=== PATIENT | female | born 1960 | race Caucasian/White ===

== ENCOUNTER 2018-01-02 12:11 | Emergency (ER) | payer SELFPAY ==
[~2018-01-02 12:11] MED LIST: XYLOCAINE 2 % (PLAIN) ONE
[2018-01-02] MEDS ORDERED: DILAUDID INJ ONE (12:12)
[2018-01-02] MEDS ORDERED: NS 1000 ML 1,000 ML ONE ×2 (12:21→14:51)
[2018-01-02] MEDS ORDERED: DILAUDID INJ IVP ONE (12:41)
[2018-01-02] MEDS ORDERED: XYLOCAINE 1 % (PLAIN) ONE ×2 (12:48→15:40)
--- NOTE | 2018-01-02 12:53 | RAD ---
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 COMPARISON: None. FINDINGS: Three views of the right hand are obtained. There is comminuted open fracture of the middle and distal phalanges of the 3rd digit as well as the distal phalanx of the 4th digit with multiple p unctate metallic foreign bodies within the palm are soft tissues of the 4th digit. There is expected surrounding edema. Remaining osseous structures are intact and joint spaces are congruent. IMPRESSION: Comminuted open fractures of the distal 3rd and 4th digits as described. Reported By:
[2018-01-02] MEDS ORDERED: XYLOCAINE 1 % (PLAIN) IJ ONE (13:00)
--- NOTE | 2018-01-02 13:16 | DR.EXTPAIN ---
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 PMH - PMH Past Medical History: Diabetes, Hypothyroidism Past Surgical History: Yes - Family History Family Medical History: Diabetes Mellitus - Social History Do you use any recreational Drugs:: No ROS - Review of Systems Eyes: No Symptoms Reported ENTM: No Symptoms Reported Respiratoy: No Symptoms Reported Cardiovascular: No Symptoms Reported Gastrointestinal/Abdominal: No Symptoms Reported Genitourinary: No Symptoms Reported Neurological: No Symptoms Reported Musculoskeletal: No Symptoms Reported Integumentary: No Symptoms Reported Hematologic/Lymphatic: No Symptoms Reported Endocrine: No Symptoms Reported Psychiatric: No Symptoms Reported All Other Systems: Reviewed and Negative PE - Vital Signs Vitals: Blood Pressure 143/90 - General Limitations: No Limitations General Appearance: Alert, In No Apparent Distress - Head Head Exam: Normal Inspection - Eyes Eye exam: Normal Appearance - ENT ENT Exam: Normal Exam - Neck Neck Exam: Normal Inspection, Full ROM - Chest Chest Inspection: Normal Inspection - Respiratory Respiratory Exam: Normal Lung Sounds Bilat Respiratory Exam: Bilateral Clear to Auscultation - Cardiovascular Cardiovascular Exam: Regular Rate - Abdominal Exam Abdominal Exam: Normal Inspection Abdominal Tenderness: negative: RUQ, RLQ, LUQ, LLQ, Epigastrium, Suprapubic, Diffuse, Mild, Moderate, Severe, Other - Extremities Extremities Exam: Other (digits of right hand with trauma fracture) - Upper Extremities Shoulder Exam: Normal Inspection Arm Exam: Normal Inspection Course - Reevaluation 1st: Unchanged - Consultation Called: 13:15 (will admit for further treatment) ROR - XRAY XRAY Interpreted by: Radiologist (Right Hand: Three views of the right hand are obtained. There is comminuted open fracture of the middle and distal phalanges of the 3rd digit as well as tghe distal phalanx of the 4th digit with multiple punctate metallic foreign bodies within the palm are soft tissues of the 4th digit. There is expected surrounding edema. remaining osseous structures are intact and joint spaces are congruent.) - Diagnosis Discharge Problem: open fracture of digits 3&4 right hand - Discharge Plan Condition: Stable - Follow ups/Referrals Follow ups/Referrals: Buck Santiago [Primary Care Provider] - 3 days - Instructions
[2018-01-02] MEDS ORDERED: ZOFRAN INJ 4 MG VIAL ONE (13:44)
[2018-01-02] MEDS ORDERED: REGLAN INJ 10 MG VIAL ONE (13:44)
[2018-01-02] MEDS ORDERED: NS 100 ML IV + SPIKE MINIBAG* 100 ML IV ONE (13:59)
[2018-01-02] MEDS ORDERED: ANCEF VIAL 1 GM ONE (13:59)
[2018-01-02] MEDS: ANCEF VIAL 1 GM 1 GM in NS 100 ML IV + SPIKE MINIBAG* 100 ML IV SCH ×2 (14:15→21:20)
[2018-01-02 14:18] LABS: BASOPHILS % (AUTO) 0.6 % (0.2-1.0); EOSINOPHILS % (AUTO) 0.4 % (0.9-2.9); HEMATOCRIT 32.5 % (36.0-47.0); HEMOGLOBIN 11.4 g/dL (12.0-16.0); LYMPHOCYTES # (AUTO) 1.2 X10^3/uL (1.3-2.9); LYMPHOCYTES % (AUTO) 17.3 % (21.0-51.0); MEAN CORPUSCULAR HEMOGLOBIN 31.8 pg (27.0-34.0); MEAN CORPUSCULAR HGB CONC 35.2 g/dL (33.0-35.0); MEAN CORPUSCULAR VOLUME 90.2 fL (80.0-100.0); MEAN PLATELET VOLUME 8.8 fL (7.4-11.0); MONOCYTES # (AUTO) 0.4 x10^3/uL (0.3-0.8); MONOCYTES % (AUTO) 5.9 % (0.0-13.0); NEUTROPHILS # (AUTO) 5.2 x10^3/uL (2.2-4.8); NEUTROPHILS % (AUTO) 75.8 % (42.0-75.0); PLATELET COUNT 226 X10^3/uL (150.0-450.0); RED CELL DISTRIBUTION WIDTH 13.5 % (11.6-16.5); WHITE BLOOD COUNT 6.9 X10^3/uL (3.6-10.0)
[2018-01-02 14:28] LABS: ALANINE AMINOTRANSFERASE 21 Units/L (12-78); ALBUMIN 3.5 g/dL (3.4-5.0); ALKALINE PHOSPHATASE 60 Units/L (46-116); ASPARTATE AMINO TRANSFERASE 14 Units/L (15-37); BLOOD UREA NITROGEN 19 mg/dL (7-18); CALCIUM 8.3 mg/dL (8.5-10.1); CARBON DIOXIDE 28.3 mmol/L (21-32); CHLORIDE 106 mmol/L (98-107); COR NA(FOR HYPERGLY) 143 mmol/L (136-145); CREATININE 0.64 mg/dL (0.55-1.02); SODIUM 141 mmol/L (136-145); TOTAL PROTEIN 6.4 g/dL (6.4-8.2); eGFR BLACK RACES > 60 (>60); eGFR NON BLACK RACES > 60 (>60)
[2018-01-02] MEDS ORDERED: NAROPIN 0.75% EPI ONE (15:07)
[2018-01-02] MEDS ORDERED: NS IRRIGATION 1000 ML 1,000 ML with BACITRACIN VIAL 50,000 UNT IR ONE ×4 (15:21)
[2018-01-02] MEDS ORDERED: FENTANYL INJ 100 mcg ONE (15:25)
[2018-01-02] MEDS ORDERED: BACTROBAN OINT ONE (15:35)
[2018-01-02] MEDS ORDERED: TORADOL 30 MG VIAL ONE (15:40)
[2018-01-02] MEDS ORDERED: VERSED ONE (15:40)
[2018-01-02] MEDS ORDERED: DIPRIVAN VIAL ONE (15:40)
[2018-01-02] MEDS ORDERED: HYDROGEN PEROXIDE 3% ONE (17:03)
[2018-01-02] MEDS ORDERED: NORCO 5/325 MG TAB ONE ×2 (17:27→17:38)
[2018-01-02] MEDS ORDERED: ZOFRAN INJ 4 MG VIAL IVP PRN (17:43)
[2018-01-02] MEDS: MORPHINE SULFATE INJ 2 MG INJ IVP PRN (20:28)
[2018-01-02] MEDS ORDERED: NS 100 ML IV 100 ML IV ONE (20:35)
--- NOTE | 2018-01-02 22:01 | RAD ---
Indication: Follow-up hand surgery. Conclusion: There has been percutaneous pinning of the long and ring finger DIP joints with improved alignment involving the distal phalanx fractures. Soft-tissue swelling is noted. Reported By:
[2018-01-03] MEDS: MORPHINE SULFATE INJ 2 MG INJ IVP PRN ×2 (04:37→09:00)
[2018-01-03 05:25] LABS: BASOPHILS % (AUTO) 0.5 % (0.2-1.0); EOSINOPHILS % (AUTO) 0.2 % (0.9-2.9); HEMOGLOBIN 12.1 g/dL (12.0-16.0); LYMPHOCYTES # (AUTO) 1.4 X10^3/uL (1.3-2.9); LYMPHOCYTES % (AUTO) 16.6 % (21.0-51.0); MEAN CORPUSCULAR HEMOGLOBIN 31.2 pg (27.0-34.0); MEAN CORPUSCULAR HGB CONC 34.6 g/dL (33.0-35.0); MEAN CORPUSCULAR VOLUME 90.1 fL (80.0-100.0); MEAN PLATELET VOLUME 9.1 fL (7.4-11.0); MONOCYTES # (AUTO) 0.7 x10^3/uL (0.3-0.8); NEUTROPHILS # (AUTO) 6.3 x10^3/uL (2.2-4.8); NEUTROPHILS % (AUTO) 74.7 % (42.0-75.0); PLATELET COUNT 237 X10^3/uL (150.0-450.0); RED BLOOD COUNT 3.88 X10^6/uL (3.5-5.4); RED CELL DISTRIBUTION WIDTH 13.2 % (11.6-16.5); WHITE BLOOD COUNT 8.4 X10^3/uL (3.6-10.0)
[2018-01-03 05:33] VITALS: BMI 21.7
[2018-01-03 05:33] LABS: ALANINE AMINOTRANSFERASE 16 Units/L (12-78); ALBUMIN 3.2 g/dL (3.4-5.0); ALKALINE PHOSPHATASE 61 Units/L (46-116); ASPARTATE AMINO TRANSFERASE 11 Units/L (15-37); BLOOD UREA NITROGEN 10 mg/dL (7-18); CALCIUM 8.6 mg/dL (8.5-10.1); CARBON DIOXIDE 26.7 mmol/L (21-32); CHLORIDE 109 mmol/L (98-107); COR CA(FOR HYPOALB) 9.2 mg/dL (8.5-10.1); COR NA(FOR HYPERGLY) 144 mmol/L (136-145); CREATININE 0.65 mg/dL (0.55-1.02); SODIUM 143 mmol/L (136-145); TOTAL PROTEIN 6.2 g/dL (6.4-8.2); eGFR BLACK RACES > 60 (>60); eGFR NON BLACK RACES > 60 (>60)
[2018-01-03] MEDS: ANCEF VIAL 1 GM 1 GM in NS 100 ML IV + SPIKE MINIBAG* 100 ML IV SCH ×3 (05:37→21:26)
[2018-01-03] MEDS ORDERED: NS IRRIGATION 500 ML IR ONE (13:34)
[2018-01-03] MEDS: PERCOCET TAB 5/325 MG PO PRN ×2 (13:45→19:45)
[2018-01-03] MEDS ORDERED: FORTAZ or TAZICEF INJ 1 GM in NS 100 ML IV + SPIKE MINIBAG* 100 ML IV SCH (15:00)
[2018-01-03] MEDS: MORPHINE SULFATE INJ 4 MG IVP ONE ×2 (15:31→16:05)
[2018-01-03] MEDS: MILK OF MAGNESIA PO SCH ×2 (16:05→21:21)
[2018-01-03] MEDS: COLACE CAP 100 MG PO SCH ×2 (16:05→21:21)
[2018-01-03] MEDS ORDERED: CONSULT PHARMACY - GENTAMICIN XX SCH (17:00)
[2018-01-03] MEDS ORDERED: NS 500 ML IV 500 ML IV ONE (18:23)
[2018-01-03] MEDS: PERCOCET TAB 5/325 MG PO SCH (21:26)
--- NOTE | 2018-01-03 21:48 | DR.CONSULT ---
Consult - Consultation for Day of: Date: 01/02/18 - Chief Complaint Chief Complaint: Ms. Horn is a 57-year-old female who presented to the the emergency room. 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 he sustained a crush injury of the night and middle and ring fingers.This happened the afternoon. 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 Shows a complete crush injury of the distal phalanx of the middle finger. There is also a crush injury of the distal phalanx of the ring finger. Active bleeding is noted. Nail plate is destroyed. The compound comminuted distal phalanx fracture of the middle finger. This seems to be a sensory loss involving the distal to the injury. Multiple stab lacerations seen both volar and dorsal aspect of the distal phalanx of the middle and ring finger. X-rays confirm a compound comminuted distal phalanx fracture of the middle finger as well as ting finger. There is foreign body, metallic seen on the lateral aspect of the proximal part of the distal phalanx of the ring finger.) - Plan Plan: this is a compound comminuted fractures of the and distal phalanx of the middle finger. Also seen is foreign body in the distal phalanx of the fingers. The condition was explained to the family. She will need an emergency debridement andpossible salvage of the finger. She will also need K wire fixation of the distal phalanx of the middle and ring finger. She will need anexploration of the distal phalanx of the ring finger and debridement. The risks and benefit involved were discussed with the family and the patient. We will try to salvage the fingers. Complications like osteomyelitis, chronic pain , stiffness, nonunion, malunion, persistent pain, need for further procedure amputation a few complications which were discussedwith the family. Need for prolonged IV antibiotic treatment was discussed Need for infectious diseases consultation was also discussed with him. He understood and verbalized of saline. They consented for procedure. Patient was posted for emergency debridement,percutaneous K wire fixation, following reexploration and wound closure.
[2018-01-03] MEDS ORDERED: GENTAMICIN INJ 160 MG in NS 100 ML IV 100 ML IV SCH (22:00)
--- NOTE | 2018-01-03 22:06 | PCM.PROG ---
Progress Note - Progress Note for Day of Date: 01/03/18 - Subjective Subjective: she is postoperative day 1. Afebrile, vitals stable. There has been some soaking of the dressing. Most of her pain has been controlled with by mouth pain medication she needed some IV pain medication for pain control. She is currently on ceftazidime. Cultures obtained from the operating room negative for any growth at this time. Her dressing was changed today. The fingers are pink and viable. K wires in place. Postoperative x-rays show acceptable reduction of the fracture and K wires in situ. I again discussed with the family about the course of the treatment. The need for infectious diseases consult/PICC line/chronic IV antibiotic. Also limited prognosis regarding the functionality of the hand /wound complications/need for amputation in the future was explained to them in detail. Plan -. 1. We will place her on first generation cephalosporin /Ancef and gentamicin for broad- spectrum coverage. 2. We'll place her on by mouth pain meds with IV pain medion only for breakthrough. 3. Medical/diabetes control per Jack. 4. Limb elevation. 5. - Past Medical Family Social History Allergies: Allergies No Known Drug Allergies Allergy (Verified 01/02/18 12:14) - Vital Signs and I&O's Vital Signs: Temperature 98.8 F Pulse Rate [Left Brachial] 80 Pulse Rate 79 Respiratory Rate 20 Blood Pressure [Left Arm] 144/72 Blood Pressure 141/79 O2 Sat by Pulse Oximetry 99 Intake and Output: Intake & Output 01/01/18 01/02/18 01/03/18 01/04/18 11:59 11:59 11:59 11:59 Intake Total 540 730 Balance 540 730 - Physical Exam Musculoskeletal: Right, Hand, Swelling, Tender (right hand was examined. Shows a complete crush injury of the distal phalanx of the middle finger. There is also a crush injury of the distal phalanx of the ring finger. Active bleeding is noted. Nail plate is destroyed. The compound comminuted distal phalanx fracture of the middle finger. This seems to be a sensory loss involving the distal to the injury. Multiple stab lacerations seen both volar and dorsal aspect of the distal phalanx of the middle and ring finger. X-rays confirm a compound comminuted distal phalanx fracture of the middle finger as well as ting finger. There is foreign body, metallic seen on the lateral aspect of the proximal part of the distal phalanx of the ring finger.) Mood Description: Calm, Appropriate Speech Pattern: Clear, Appropriate - Laboratory and Diagnostics Result Diagrams: 01/03/18 04:20 01/03/18 04:20 Labs: 01/02/18 16:40 Surgery Gram Stain - Final 01/02/18 16:40 Surgery Wound Culture - Preliminary 01/02/18 16:09 Surgery Gram Stain - Final 01/02/18 16:09 Surgery Wound Culture - Preliminary Laboratory WBC 8.4 X10^3/uL (3.6-10.0) 01/03/18 04:20 RBC 3.88 X10^6/uL (3.5-5.4) 01/03/18 04:20 Hgb 12.1 g/dL (12.0-16.0) 01/03/18 04:20 Hct 35.0 % (36.0-47.0) L 01/03/18 04:20 MCV 90.1 fL (80.0-100.0) 01/03/18 04:20 MCH 31.2 pg (27.0-34.0) 01/03/18 04:20 MCHC 34.6 g/dL (33.0-35.0) 01/03/18 04:20 RDW 13.2 % (11.6-16.5) 01/03/18 04:20 Plt Count 237 X10^3/uL (150.0-450.0) 01/03/18 04:20 MPV 9.1 fL (7.4-11.0) 01/03/18 04:20 Neut % 74.7 % (42.0-75.0) 01/03/18 04:20 Lymph % 16.6 % (21.0-51.0) L 01/03/18 04:20 [place] % 8.0 % (0.0-13.0) 01/03/18 04:20 Eos % 0.2 % (0.9-2.9) L 01/03/18 04:20 Baso % 0.5 % (0.2-1.0) 01/03/18 04:20 Neut # 6.3 x10^3/uL (2.2-4.8) H 01/03/18 04:20 Lymph # 1.4 X10^3/uL (1.3-2.9) 01/03/18 04:20 [place] # 0.7 x10^3/uL (0.3-0.8) 01/03/18 04:20 Eos # 0.0 x10^3/uL (0.0-0.2) 01/03/18 04:20 Baso # 0.0 X10^3/uL (0.0-0.1) 01/03/18 04:20 Absolute Nucleated RBC 0.0 /100WBC 01/03/18 04:20 Sodium 143 mmol/L (136-145) 01/03/18 04:20 Corrected Sodium 144 mmol/L (136-145) 01/03/18 04:20 Potassium 3.6 mmol/L (3.5-5.1) 01/03/18 04:20 Chloride 109 mmol/L (98-107) H 01/03/18 04:20 Carbon Dioxide 26.7 mmol/L (21-32) 01/03/18 04:20 BUN 10 mg/dL (7-18) 01/03/18 04:20 Creatinine 0.65 mg/dL (0.55-1.02) 01/03/18 04:20 Est GFR (MDRD) Af Amer > 60 (>60) 01/03/18 04:20 Est GFR (MDRD) Non-Af > 60 (>60) 01/03/18 04:20 Glucose 158 mg/dL (65-99) H 01/03/18 04:20 POC Glucose (mg/dL) 180 mg/dL (65-99) H 01/03/18 21:05 Calcium 8.6 mg/dL (8.5-10.1) 01/03/18 04:20 Corrected Calcium 9.2 mg/dL (8.5-10.1) 01/03/18 04:20 Total Bilirubin 0.50 mg/dL (0.2-1.0) 01/03/18 04:20 AST 11 Units/L (15-37) L 01/03/18 04:20 ALT 16 Units/L (12-78) 01/03/18 04:20 Alkaline Phosphatase 61 Units/L (46-116) 01/03/18 04:20 Total Protein 6.2 g/dL (6.4-8.2) L 01/03/18 04:20 Albumin 3.2 g/dL (3.4-5.0) L 01/03/18 04:20 Globulin 3.0 g/dL (2.5-4.5) 01/03/18 04:20 Albumin/Globulin Ratio 1.1 Ratio (1.1-2.1) 01/03/18 04:20 - Plan (1) Open fracture of distal phalanx of middle finger Status: Acute Qualifiers: Encounter type: initial encounter Fracture alignment: displaced Laterality: right Qualified Code(s): S62.632B - Displaced fracture of distal phalanx of right middle finger, initial encounter for open fracture Plan: Plan -. 1. We will place her on first generation cephalosporin /Ancef and gentamicin for broad-spectrum coverage. 2. We'll place her on by mouth pain meds with IV pain medion only for breakthrough. 3. Medical/diabetes control per Jack. 4. Limb elevation (2) Open fracture of distal phalanx of ring finger Status: Acute Qualifiers: Encounter type: initial encounter Fracture alignment: displaced Laterality: right Qualified Code(s): S62.634B - Displaced fracture of distal phalanx of right ring finger, initial encounter for open fracture Plan: Plan -. 1. We will place her on first generation cephalosporin /Ancef and gentamicin for broad-spectrum coverage. 2. We'll place her on by mouth pain meds with IV pain medion only for breakthrough. 3. Medical/diabetes control per Jack. 4. Limb elevation
[2018-01-04] MEDS: GENTAMICIN INJ 60 MG in NS 100 ML IV 100 ML IV SCH ×4 (00:54→22:10)
[2018-01-04] MEDS: PERCOCET TAB 5/325 MG PO PRN ×3 (02:20→14:28)
[2018-01-04] MEDS ORDERED: GENTAMICIN INJ ONE (04:16)
[2018-01-04] MEDS ORDERED: NS 100 ML IV 100 ML IV ONE (04:21)
[2018-01-04] MEDS: ANCEF VIAL 1 GM 1 GM in NS 100 ML IV + SPIKE MINIBAG* 100 ML IV SCH ×3 (06:14→22:10)
[2018-01-04 07:31] LABS: BASOPHILS % (AUTO) 0.7 % (0.2-1.0); EOSINOPHILS # (AUTO) 0.1 x10^3/uL (0.0-0.2); EOSINOPHILS % (AUTO) 1.6 % (0.9-2.9); HEMATOCRIT 31.8 % (36.0-47.0); HEMOGLOBIN 11.2 g/dL (12.0-16.0); LYMPHOCYTES # (AUTO) 1.8 X10^3/uL (1.3-2.9); LYMPHOCYTES % (AUTO) 29.2 % (21.0-51.0); MEAN CORPUSCULAR HEMOGLOBIN 31.5 pg (27.0-34.0); MEAN CORPUSCULAR HGB CONC 35.1 g/dL (33.0-35.0); MEAN CORPUSCULAR VOLUME 89.7 fL (80.0-100.0); MEAN PLATELET VOLUME 8.6 fL (7.4-11.0); MONOCYTES # (AUTO) 0.5 x10^3/uL (0.3-0.8); NEUTROPHILS # (AUTO) 3.8 x10^3/uL (2.2-4.8); NEUTROPHILS % (AUTO) 60.5 % (42.0-75.0); PLATELET COUNT 203 X10^3/uL (150.0-450.0); RED BLOOD COUNT 3.54 X10^6/uL (3.5-5.4); WHITE BLOOD COUNT 6.2 X10^3/uL (3.6-10.0)
[2018-01-04 07:53] LABS: ALANINE AMINOTRANSFERASE 12 Units/L (12-78); ALKALINE PHOSPHATASE 61 Units/L (46-116); ASPARTATE AMINO TRANSFERASE 12 Units/L (15-37); BLOOD UREA NITROGEN 8 mg/dL (7-18); CARBON DIOXIDE 29.1 mmol/L (21-32); CHLORIDE 108 mmol/L (98-107); COR CA(FOR HYPOALB) 8.8 mg/dL (8.5-10.1); COR NA(FOR HYPERGLY) 142 mmol/L (136-145); CREATININE 0.62 mg/dL (0.55-1.02); SODIUM 141 mmol/L (136-145); eGFR BLACK RACES > 60 (>60); eGFR NON BLACK RACES > 60 (>60)
[2018-01-04] MEDS: ZOFRAN INJ 4 MG VIAL IVP PRN ×2 (09:32→20:27)
[2018-01-04] MEDS ORDERED: GLUCOPHAGE ONE (14:32)
[2018-01-04] MEDS: JANUVIA PO SCH (14:57)
[2018-01-04] MEDS: GLUCOPHAGE PO SCH (14:57)
[2018-01-04] MEDS: TAB-A-VITE PO SCH (16:09)
[2018-01-04] MEDS: ZINC SULFATE PO SCH (16:09)
[2018-01-04] MEDS: VITAMIN C PO SCH (16:09)
[2018-01-04] MEDS: MIRALAX POWDER (1 DOSE 17GM) PO SCH (20:25)
[2018-01-04] MEDS: MILK OF MAGNESIA PO SCH (20:25)
[2018-01-04] MEDS: PERCOCET TAB 5/325 MG PO SCH (20:25)
[2018-01-04] MEDS: COLACE CAP 100 MG PO SCH (20:25)
[2018-01-04] MEDS: SNACK - Diabetic Appropriate PO SCH (20:36)
[2018-01-05] MEDS: PERCOCET TAB 5/325 MG PO PRN ×4 (02:38→23:04)
[2018-01-05] MEDS ORDERED: GLUCOPHAGE ONE (05:56)
[2018-01-05] MEDS: GENTAMICIN INJ 60 MG in NS 100 ML IV 100 ML IV SCH ×3 (06:06→23:03)
[2018-01-05] MEDS: ANCEF VIAL 1 GM 1 GM in NS 100 ML IV + SPIKE MINIBAG* 100 ML IV SCH ×3 (06:06→23:03)
[2018-01-05] MEDS: GLUCOPHAGE PO SCH (06:06)
[2018-01-05] MEDS: JANUVIA PO SCH (06:07)
[2018-01-05 06:10] LABS: BASOPHILS % (AUTO) 0.7 % (0.2-1.0); EOSINOPHILS # (AUTO) 0.1 x10^3/uL (0.0-0.2); HEMATOCRIT 32.4 % (36.0-47.0); HEMOGLOBIN 11.4 g/dL (12.0-16.0); LYMPHOCYTES # (AUTO) 1.8 X10^3/uL (1.3-2.9); LYMPHOCYTES % (AUTO) 29.7 % (21.0-51.0); MEAN CORPUSCULAR HEMOGLOBIN 31.5 pg (27.0-34.0); MEAN CORPUSCULAR HGB CONC 35.1 g/dL (33.0-35.0); MEAN CORPUSCULAR VOLUME 89.5 fL (80.0-100.0); MEAN PLATELET VOLUME 9.1 fL (7.4-11.0); MONOCYTES # (AUTO) 0.5 x10^3/uL (0.3-0.8); NEUTROPHILS # (AUTO) 3.5 x10^3/uL (2.2-4.8); NEUTROPHILS % (AUTO) 58.6 % (42.0-75.0); PLATELET COUNT 221 X10^3/uL (150.0-450.0); RED BLOOD COUNT 3.62 X10^6/uL (3.5-5.4); RED CELL DISTRIBUTION WIDTH 13.2 % (11.6-16.5)
[2018-01-05 06:49] LABS: ALANINE AMINOTRANSFERASE 14 Units/L (12-78); ALBUMIN 3.1 g/dL (3.4-5.0); ALKALINE PHOSPHATASE 61 Units/L (46-116); ASPARTATE AMINO TRANSFERASE 14 Units/L (15-37); BLOOD UREA NITROGEN 9 mg/dL (7-18); CALCIUM 8.5 mg/dL (8.5-10.1); CARBON DIOXIDE 30.3 mmol/L (21-32); CHLORIDE 103 mmol/L (98-107); COR CA(FOR HYPOALB) 9.2 mg/dL (8.5-10.1); COR NA(FOR HYPERGLY) 141 mmol/L (136-145); CREATININE 0.68 mg/dL (0.55-1.02); SODIUM 140 mmol/L (136-145); TOTAL PROTEIN 6.3 g/dL (6.4-8.2); eGFR BLACK RACES > 60 (>60); eGFR NON BLACK RACES > 60 (>60)
[2018-01-05] MEDS: ZINC SULFATE PO SCH (08:05)
[2018-01-05] MEDS: VITAMIN C PO SCH (08:05)
[2018-01-05] MEDS: TAB-A-VITE PO SCH (08:05)
[2018-01-05] MEDS: MILK OF MAGNESIA PO SCH (08:06)
[2018-01-05] MEDS ORDERED: NS 500 ML IV 500 ML IV ONE ×2 (08:14→17:53)
[2018-01-05] MEDS: ZOFRAN INJ 4 MG VIAL IVP PRN (08:16)
[2018-01-05] MEDS: MOTRIN TAB 800 MG PO PRN (12:33)
[2018-01-05] MEDS ORDERED: POTASSIUM CHL 60 MEQ/NS 0.45% 500 ML IV PRN (16:58)
[2018-01-05] MEDS ORDERED: MAG-OX TAB PO PRN (16:58)
[2018-01-05] MEDS ORDERED: K-LYTE EFFERVESCENT PO PRN (16:58)
[2018-01-05] MEDS ORDERED: POTASSIUM CHLORIDE LIQ 20 MEQ UDC PO PRN (16:58)
[2018-01-05] MEDS ORDERED: K-RIDER 10 MEQ/NS 100 ML 10 MEQ/100 ML BAG IV PRN (16:58)
[2018-01-05] MEDS ORDERED: MILK OF MAGNESIA PO PRN (17:14)
[2018-01-05] MEDS: POTASSIUM CHL 40 MEQ/NS 0.45% 500 ML IV PRN ×3 (17:20→23:04)
[2018-01-05] MEDS: NS 500 ML IV 500 ML IV PRN (18:09)
[2018-01-05] MEDS ORDERED: NS 100 ML IV + SPIKE MINIBAG* 100 ML IV ONE (19:56)
[2018-01-05] MEDS: COLACE CAP 100 MG PO SCH (20:05)
[2018-01-05] MEDS: MIRALAX POWDER (1 DOSE 17GM) PO SCH (20:05)
[2018-01-05] MEDS: SNACK - Diabetic Appropriate PO SCH (20:10)
[2018-01-05] MEDS: PERCOCET TAB 5/325 MG PO SCH (23:02)
[2018-01-06] MEDS: POTASSIUM CHL 40 MEQ/NS 0.45% 500 ML IV PRN (01:57)
[2018-01-06] MEDS: GENTAMICIN INJ 60 MG in NS 100 ML IV 100 ML IV SCH ×3 (05:09→23:01)
[2018-01-06] MEDS: ANCEF VIAL 1 GM 1 GM in NS 100 ML IV + SPIKE MINIBAG* 100 ML IV SCH ×3 (05:09→23:01)
[2018-01-06 05:30] LABS: BASOPHILS # (AUTO) 0.1 X10^3/uL (0.0-0.1); EOSINOPHILS # (AUTO) 0.1 x10^3/uL (0.0-0.2); EOSINOPHILS % (AUTO) 2.6 % (0.9-2.9); HEMATOCRIT 29.9 % (36.0-47.0); HEMOGLOBIN 10.6 g/dL (12.0-16.0); LYMPHOCYTES # (AUTO) 1.9 X10^3/uL (1.3-2.9); LYMPHOCYTES % (AUTO) 35.6 % (21.0-51.0); MEAN CORPUSCULAR HEMOGLOBIN 31.7 pg (27.0-34.0); MEAN CORPUSCULAR HGB CONC 35.3 g/dL (33.0-35.0); MEAN CORPUSCULAR VOLUME 89.9 fL (80.0-100.0); MEAN PLATELET VOLUME 8.8 fL (7.4-11.0); MONOCYTES # (AUTO) 0.4 x10^3/uL (0.3-0.8); NEUTROPHILS # (AUTO) 2.8 x10^3/uL (2.2-4.8); NEUTROPHILS % (AUTO) 52.8 % (42.0-75.0); PLATELET COUNT 221 X10^3/uL (150.0-450.0); RED BLOOD COUNT 3.33 X10^6/uL (3.5-5.4); RED CELL DISTRIBUTION WIDTH 13.2 % (11.6-16.5); WHITE BLOOD COUNT 5.3 X10^3/uL (3.6-10.0)
[2018-01-06 05:45] LABS: ALANINE AMINOTRANSFERASE 12 Units/L (12-78); ALBUMIN 2.8 g/dL (3.4-5.0); ALKALINE PHOSPHATASE 58 Units/L (46-116); ASPARTATE AMINO TRANSFERASE 12 Units/L (15-37); BLOOD UREA NITROGEN 8 mg/dL (7-18); CALCIUM 8.5 mg/dL (8.5-10.1); CHLORIDE 106 mmol/L (98-107); COR CA(FOR HYPOALB) 9.5 mg/dL (8.5-10.1); COR NA(FOR HYPERGLY) 140 mmol/L (136-145); CREATININE 0.64 mg/dL (0.55-1.02); MAGNESIUM 1.8 mg/dL (1.7-2.9); SODIUM 139 mmol/L (136-145); TOTAL PROTEIN 5.9 g/dL (6.4-8.2); eGFR BLACK RACES > 60 (>60); eGFR NON BLACK RACES > 60 (>60)
[2018-01-06] MEDS ORDERED: GLUCOPHAGE ONE ×2 (05:50→08:08)
[2018-01-06] MEDS: PERCOCET TAB 5/325 MG PO PRN ×3 (05:52→19:00)
[2018-01-06] MEDS: JANUVIA PO SCH (06:00)
[2018-01-06] MEDS: GLUCOPHAGE PO SCH (06:00)
[2018-01-06] MEDS: MOTRIN TAB 800 MG PO PRN ×2 (08:30→20:42)
[2018-01-06] MEDS: NS 500 ML IV 500 ML IV PRN (08:56)
[2018-01-06] MEDS: VITAMIN C PO SCH (08:56)
[2018-01-06] MEDS: ZINC SULFATE PO SCH (08:56)
[2018-01-06] MEDS: TAB-A-VITE PO SCH (08:56)
--- NOTE | 2018-01-06 11:36 | PCM.PROG ---
Progress Note - Progress Note for Day of Date: 01/03/18 - Subjective Subjective: IS STATUS POST REPAIR OF OPEN FRACTURE TO THE 3RD AND 4TH DIGITS OF THE RIGHT HAND. TODAY, SHE IS ALERT AND ORIENTED, SITTING UP IN BED ON MORNING ROUNDS. SHE IS NOTED WITH COMPLAINTS OF RIGHT HAND PAIN AND THROBBING. RIGHT HAND IS NOTED WITH A SURGICAL DRESSING. WILL CHANGE DRESSING AND ASSESS WOUND TODAY. HER VITALS THIS MORNING ARE 99.0-88-20-97%-129/ 72. LABS WERE OBTAINED THIS MORNING. SHE REMAINS HEMODYNAMICALLY STABLE TODAY. WOUND CULTURES WERE OBTAINED IN SURGERY AND ARE PENDING RESULTS. TODAY, WE WILL START PERCOCET 2 TABLETS EVERY 6 HOURS NEEDED FOR PAIN. OTHERWISE, WE WILL CONTINUE WITH CURRENT PLAN OF CARE. WOUND CARE PER INSTRUCTIONS. WE WILL RESUME PATIENTS DIABETIC MEDICATION. OTHERWISE, WE PLAN TO FOLLOW UP WITH AM LABS AND CONTINUE TO MONITOR PATIENT. - Past Medical Family Social History Past Med/Fam/Surg Hx: No changes since H&P Allergies: Allergies No Known Drug Allergies Allergy (Verified 01/02/18 12:14) - Review of Systems ROS: No change since H&P - Vital Signs and I&O's Vital Signs: Temperature 98.0 F Pulse Rate [Right Brachial] 76 Pulse Rate [Left Brachial] 76 Pulse Rate 79 Respiratory Rate 18 Blood Pressure [Left Arm] 121/58 Blood Pressure 141/79 O2 Sat by Pulse Oximetry 99 Intake and Output: Intake & Output 01/03/18 01/04/18 01/05/18 01/06/18 11:59 11:59 11:59 11:59 Intake Total 540 1845 2555 2540 Balance 540 1845 2555 2540 - Physical Exam Oriented: Normal Eyes: Normal Ear: Normal Nose: Normal Throat: Normal Respiratory: Normal Cardiovascular: Normal : Normal Auscultation: Bowel Sounds: Normal Palpation: Normal Tenderness: Normal Skin: Wound Musculoskeletal: Right, Hand, Swelling, Tender (right hand was examined. Shows a complete crush injury of the distal phalanx of the middle finger. There is also a crush injury of the distal phalanx of the ring finger. Active bleeding is noted. Nail plate is destroyed. The compound comminuted distal phalanx fracture of the middle finger. This seems to be a sensory loss involving the distal to the injury. Multiple stab lacerations seen both volar and dorsal aspect of the distal phalanx of the middle and ring finger. X-rays confirm a compound comminuted distal phalanx fracture of the middle finger as well as ting finger. There is foreign body, metallic seen on the lateral aspect of the proximal part of the distal phalanx of the ring finger.) Mood Description: Calm, Appropriate Affect: Normal Speech Pattern: Clear, Appropriate - Laboratory and Diagnostics Result Diagrams: 01/06/18 04:54 01/06/18 04:54 Labs: 01/02/18 16:09 Surgery Gram Stain - Final 01/02/18 16:09 Surgery Wound Culture - Final Staphylococcus Epidermidis 01/02/18 16:40 Surgery Gram Stain - Final 01/02/18 16:40 Surgery Wound Culture - Final Staphylococcus Capitis Laboratory WBC 5.3 X10^3/uL (3.6-10.0) 01/06/18 04:54 RBC 3.33 X10^6/uL (3.5-5.4) L 01/06/18 04:54 Hgb 10.6 g/dL (12.0-16.0) L 01/06/18 04:54 Hct 29.9 % (36.0-47.0) L 01/06/18 04:54 MCV 89.9 fL (80.0-100.0) 01/06/18 04:54 MCH 31.7 pg (27.0-34.0) 01/06/18 04:54 MCHC 35.3 g/dL (33.0-35.0) H 01/06/18 04:54 RDW 13.2 % (11.6-16.5) 01/06/18 04:54 Plt Count 221 X10^3/uL (150.0-450.0) 01/06/18 04:54 MPV 8.8 fL (7.4-11.0) 01/06/18 04:54 Neut % 52.8 % (42.0-75.0) 01/06/18 04:54 Lymph % 35.6 % (21.0-51.0) 01/06/18 04:54 [place] % 8.0 % (0.0-13.0) 01/06/18 04:54 Eos % 2.6 % (0.9-2.9) 01/06/18 04:54 Baso % 1.0 % (0.2-1.0) 01/06/18 04:54 Neut # 2.8 x10^3/uL (2.2-4.8) 01/06/18 04:54 Lymph # 1.9 X10^3/uL (1.3-2.9) 01/06/18 04:54 [place] # 0.4 x10^3/uL (0.3-0.8) 01/06/18 04:54 Eos # 0.1 x10^3/uL (0.0-0.2) 01/06/18 04:54 Baso # 0.1 X10^3/uL (0.0-0.1) 01/06/18 04:54 Absolute Nucleated RBC 0.0 /100WBC 01/06/18 04:54 Sodium 139 mmol/L (136-145) 01/06/18 04:54 Corrected Sodium 140 mmol/L (136-145) 01/06/18 04:54 Potassium 4.0 mmol/L (3.5-5.1) 01/06/18 04:54 Chloride 106 mmol/L (98-107) 01/06/18 04:54 Carbon Dioxide 27.0 mmol/L (21-32) 01/06/18 04:54 BUN 8 mg/dL (7-18) 01/06/18 04:54 Creatinine 0.64 mg/dL (0.55-1.02) 01/06/18 04:54 Est GFR (MDRD) Af Amer > 60 (>60) 01/06/18 04:54 Est GFR (MDRD) Non-Af > 60 (>60) 01/06/18 04:54 Glucose 127 mg/dL (65-99) H 01/06/18 04:54 POC Glucose (mg/dL) 107 mg/dL (65-99) H 01/06/18 11:23 Calcium 8.5 mg/dL (8.5-10.1) 01/06/18 04:54 Corrected Calcium 9.5 mg/dL (8.5-10.1) 01/06/18 04:54 Magnesium 1.8 mg/dL (1.7-2.9) 01/06/18 04:54 Total Bilirubin 0.30 mg/dL (0.2-1.0) 01/06/18 04:54 AST 12 Units/L (15-37) L 01/06/18 04:54 ALT 12 Units/L (12-78) 01/06/18 04:54 Alkaline Phosphatase 58 Units/L (46-116) 01/06/18 04:54 Total Protein 5.9 g/dL (6.4-8.2) L 01/06/18 04:54 Albumin 2.8 g/dL (3.4-5.0) L 01/06/18 04:54 Globulin 3.1 g/dL (2.5-4.5) 01/06/18 04:54 Albumin/Globulin Ratio 0.9 Ratio (1.1-2.1) L 01/06/18 04:54 - Plan (1) Open fracture of distal phalanx of middle finger Status: Acute Qualifiers: Encounter type: initial encounter Fracture alignment: displaced Laterality: right Qualified Code(s): S62.632B - Displaced fracture of distal phalanx of right middle finger, initial encounter for open fracture Plan: Plan -. 1. We will place her on first generation cephalosporin /Ancef and gentamicin for broad-spectrum coverage. 2. We'll place her on by mouth pain meds with IV pain medion only for breakthrough. 3. Medical/diabetes control per Jack. 4. Limb elevation (2) Open fracture of distal phalanx of ring finger Status: Acute Qualifiers: Encounter type: initial encounter Fracture alignment: displaced Laterality: right Qualified Code(s): S62.634B - Displaced fracture of distal phalanx of right ring finger, initial encounter for open fracture Plan: Plan -. 1. We will place her on first generation cephalosporin /Ancef and gentamicin for broad-spectrum coverage. 2. We'll place her on by mouth pain meds with IV pain medion only for breakthrough. 3. Medical/diabetes control per Jack. 4. Limb elevation
--- NOTE | 2018-01-06 13:08 | PCM.PROG ---
Progress Note - Progress Note for Day of Date: 01/04/18 - Subjective Subjective: IS STATUS POST REPAIR OF OPEN FRACTURE TO THE 3RD AND 4TH DIGITS OF THE RIGHT HAND. TODAY, SHE IS ALERT AND ORIENTED, SITTING UP IN BED ON MORNING ROUNDS. SHE CONTINUES WITH COMPLAINTS OF RIGHT HAND PAIN AND THROBBING.ON EXAMINATION, HEART IS REGULAR IN RATE AND RHYTHM. BILATERAL LUNGS ARE NOTED TO BE CLEAR TO AUSCULTATION. ABDOMEN IS ROUND, SOFT, AND NON-TENDER WITH NORMAL BOWEL SOUNDS NOTED IN ALL QUADRANTS. NORMAL RANGE OF MOTION NOTED TO ALL EXTREMITIES. RIGHT HAND IS NOTED WITH A SURGICAL DRESSING. DID A DRESSING CHANGE AND WOUND CARE YESTERDAY. HE PLANS TO CHANGE DRESSING AGAIN ON SATURDAY. HER VITALS THIS MORNING ARE 98.4-75-18-96%-119/73. LABS WERE OBTAINED THIS MORNING. SHE REMAINS HEMODYNAMICALLY STABLE TODAY. PRELIMINARY WOUND CULTURES REPORT GROWTH OF COAGULASE NEGATIVE STAPH. SHE IS CURRENTLY ON ANCEF 1GM IV Q8H AND GENTAMICIN FOR BROAD [employer] C[employer]AGE. WE WILL CONTINUE WITH CURRENT PLAN OF CARE TODAY. WE PLAN TO FOLLOW UP WITH AM LABS AND CONTINUE TO MONITOR PATIENT. - Past Medical Family Social History Past Med/Fam/Surg Hx: No changes since H&P Allergies: Allergies No Known Drug Allergies Allergy (Verified 01/02/18 12:14) - Review of Systems ROS: No change since H&P - Vital Signs and I&O's Vital Signs: Temperature 98.0 F Pulse Rate [Right Brachial] 76 Pulse Rate [Left Brachial] 76 Pulse Rate 79 Respiratory Rate 18 Blood Pressure [Left Arm] 121/58 Blood Pressure 141/79 O2 Sat by Pulse Oximetry 99 Intake and Output: Intake & Output 01/04/18 01/05/18 01/06/18 01/07/18 11:59 11:59 11:59 11:59 Intake Total 1845 2555 2540 Balance 1845 2555 2540 - Physical Exam Oriented: Normal Eyes: Normal Ear: Normal Nose: Normal Throat: Normal Respiratory: Normal Cardiovascular: Normal : Normal Auscultation: Bowel Sounds: Normal Palpation: Normal Tenderness: Normal Skin: Wound Musculoskeletal: Right, Hand, Swelling, Tender (right hand was examined. Shows a complete crush injury of the distal phalanx of the middle finger. There is also a crush injury of the distal phalanx of the ring finger. Active bleeding is noted. Nail plate is destroyed. The compound comminuted distal phalanx fracture of the middle finger. This seems to be a sensory loss involving the distal to the injury. Multiple stab lacerations seen both volar and dorsal aspect of the distal phalanx of the middle and ring finger. X-rays confirm a compound comminuted distal phalanx fracture of the middle finger as well as ting finger. There is foreign body, metallic seen on the lateral aspect of the proximal part of the distal phalanx of the ring finger.) Mood Description: Calm, Appropriate Affect: Normal Speech Pattern: Clear, Appropriate - Laboratory and Diagnostics Result Diagrams: 01/06/18 04:54 01/06/18 04:54 Labs: 01/02/18 16:09 Surgery Gram Stain - Final 01/02/18 16:09 Surgery Wound Culture - Final Staphylococcus Epidermidis 01/02/18 16:40 Surgery Gram Stain - Final 01/02/18 16:40 Surgery Wound Culture - Final Staphylococcus Capitis Laboratory WBC 5.3 X10^3/uL (3.6-10.0) 01/06/18 04:54 RBC 3.33 X10^6/uL (3.5-5.4) L 01/06/18 04:54 Hgb 10.6 g/dL (12.0-16.0) L 01/06/18 04:54 Hct 29.9 % (36.0-47.0) L 01/06/18 04:54 MCV 89.9 fL (80.0-100.0) 01/06/18 04:54 MCH 31.7 pg (27.0-34.0) 01/06/18 04:54 MCHC 35.3 g/dL (33.0-35.0) H 01/06/18 04:54 RDW 13.2 % (11.6-16.5) 01/06/18 04:54 Plt Count 221 X10^3/uL (150.0-450.0) 01/06/18 04:54 MPV 8.8 fL (7.4-11.0) 01/06/18 04:54 Neut % 52.8 % (42.0-75.0) 01/06/18 04:54 Lymph % 35.6 % (21.0-51.0) 01/06/18 04:54 Russell % 8.0 % (0.0-13.0) 01/06/18 04:54 Eos % 2.6 % (0.9-2.9) 01/06/18 04:54 Baso % 1.0 % (0.2-1.0) 01/06/18 04:54 Neut # 2.8 x10^3/uL (2.2-4.8) 01/06/18 04:54 Lymph # 1.9 X10^3/uL (1.3-2.9) 01/06/18 04:54 Russell # 0.4 x10^3/uL (0.3-0.8) 01/06/18 04:54 Eos # 0.1 x10^3/uL (0.0-0.2) 01/06/18 04:54 Baso # 0.1 X10^3/uL (0.0-0.1) 01/06/18 04:54 Absolute Nucleated RBC 0.0 /100WBC 01/06/18 04:54 Sodium 139 mmol/L (136-145) 01/06/18 04:54 Corrected Sodium 140 mmol/L (136-145) 01/06/18 04:54 Potassium 4.0 mmol/L (3.5-5.1) 01/06/18 04:54 Chloride 106 mmol/L (98-107) 01/06/18 04:54 Carbon Dioxide 27.0 mmol/L (21-32) 01/06/18 04:54 BUN 8 mg/dL (7-18) 01/06/18 04:54 Creatinine 0.64 mg/dL (0.55-1.02) 01/06/18 04:54 Est GFR (MDRD) Af Amer > 60 (>60) 01/06/18 04:54 Est GFR (MDRD) Non-Af > 60 (>60) 01/06/18 04:54 Glucose 127 mg/dL (65-99) H 01/06/18 04:54 POC Glucose (mg/dL) 107 mg/dL (65-99) H 01/06/18 11:23 Calcium 8.5 mg/dL (8.5-10.1) 01/06/18 04:54 Corrected Calcium 9.5 mg/dL (8.5-10.1) 01/06/18 04:54 Magnesium 1.8 mg/dL (1.7-2.9) 01/06/18 04:54 Total Bilirubin 0.30 mg/dL (0.2-1.0) 01/06/18 04:54 AST 12 Units/L (15-37) L 01/06/18 04:54 ALT 12 Units/L (12-78) 01/06/18 04:54 Alkaline Phosphatase 58 Units/L (46-116) 01/06/18 04:54 Total Protein 5.9 g/dL (6.4-8.2) L 01/06/18 04:54 Albumin 2.8 g/dL (3.4-5.0) L 01/06/18 04:54 Globulin 3.1 g/dL (2.5-4.5) 01/06/18 04:54 Albumin/Globulin Ratio 0.9 Ratio (1.1-2.1) L 01/06/18 04:54 - Plan (1) Open fracture of distal phalanx of middle finger Status: Acute Qualifiers: Encounter type: initial encounter Fracture alignment: displaced Laterality: right Qualified Code(s): S62.632B - Displaced fracture of distal phalanx of right middle finger, initial encounter for open fracture Plan: CONTINUE IV ANTIBIOTICS AND WOUND CARE, PO AND IV PAIN MEDICATION, CONTINUE TO MONITOR (2) Open fracture of distal phalanx of ring finger Status: Acute Qualifiers: Encounter type: initial encounter Fracture alignment: displaced Laterality: right Qualified Code(s): S62.634B - Displaced fracture of distal phalanx of right ring finger, initial encounter for open fracture Plan: CONTINUE IV ANTIBIOTICS AND WOUND CARE, PO AND IV PAIN MEDICATION, CONTINUE TO MONITOR (3) Diabetes Status: Acute Qualifiers: Diabetes mellitus type: type 2 Diabetes mellitus complication status: without complication Diabetes mellitus fdc insulin use: with 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
[2018-01-06] MEDS ORDERED: BACITRACIN ZINC ONE (14:05)
[2018-01-06 15:20] LABS: CREATININE 0.94 mg/dL (0.55-1.02); GENTAMICIN,TROUGH 0.6 ug/mL (0-1.9)
--- NOTE | 2018-01-06 16:31 | OR.GENERIC ---
Post-Op Note Generic - Post-Op Note Operative Report: PREOPERATIVE [id number] CRUSH INJURY OFF THE DISTAL PHALANX OF MIDDLE FINGER rIGHT-HAND CRUSH INJURY OF DISTAL PHALANX OF THE RING FINGER. POSTOPERATIVE DIAGNOSIS- RIGHT-HAND CRUSH INJURY OFF THE DISTAL PHALANX OF MIDDLE FINGER RIGHT-HAND CRUSH INJURY OF DISTAL PHALANX OF THE RING FINGER. PROCEDURE- 1. Deep debridement of RIGHT hand distal phalanx of middle finger and ring finger 2. Percutaneous K wire fixation of a RIGHT hand distal phalanx of the middle and ring finger. 3. Nailbed repair of RIGHT hand middle finger Indication-Mrs. Justina Bailey is a 57-year-old female who presented to the ER with an crush injury of the RIGHT hand. 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 She had her RIGHT hand caught in the machine. She noticed severe pain, bleeding and crush injury of the hand. She was brought to the emergency room immediately. I was consult ordered for the same. Patient was seen in the emergency room. Examination of the RIGHT hand showed a crush injury of the distal phalanx of the middle finger. There is also a crush injury of the distal phalanx of the ring finger. Active bleeding is noted. Nail plate is destroyed. The compound comminuted distal phalanx fracture of the middle finger. This seems to be a sensory loss involving the distal to the injury. Multiple stab lacerations seen both volar and dorsal aspect of the distal phalanx of the middle and ring finger. X-rays confirm a compound comminuted distal phalanx fracture of the middle finger as well as ting finger. There is foreign body, metallic seen on the lateral aspect of the proximal part of the distal phalanx of the ring finger. these findings were discussed with her as well as the family. She was accompanied in the ER with her mother as well as the son. The need for emergency debridement and further procedures was discussed with him. She was posted for emergency surgery. it is also brought to the noticed that the priority would be to salvage the fingers. They do not want any amputation at this beto. It is brought to the noticed that it is fairly crushed and even if it is salvageable she might end up with an nonfunctional chronically painful finger. She as a last family understands and verbalizes same. They want to proceed with the surgery which will try to salvage her fingers.She was met in the emergency room by the algorithm design engineer. Complications including but not limited to infection, osteomyelitis, numbness, stiffness, chronic pain, nonfunctional hand, need for amputation in the future, nonunion, malunion, nail bed disorders very few other complications which were discussed with her. She as well as the family understood and verbalized same. Procedure-patient was wheeled to the operating room. Patient was placed supine on the operative table with the RIGHT hand on arm board. Patient got local anesthesia in the form of a ring block. She also got a supplemental MAC. RIGHT limb was prepped and draped. The middle finger was addressed first. A digital tourniquet was placed at the base of the middle finger. The extent of injury was inspected. She had 3 parallel deep lacerations which corresponds to the blades of the machine. The middle deep laceration was the deepest along the 3 and extended through the full thickness of distal phalanx starting dorsally and extending to the volar. The other 2 on the radial and ulnar aspect where not as deep and got about 50-60% of the thickness of the distal phalanx. These lacerations started from the tip of the distal phalanx and extended to the proximal end of the distal phalanx just distal to the distal interphalangeal joint. The nail was split into 2 halves. The nailbed was assessed after the nail was removed using a freer. A [place] was placed underneath the nail to develop a plane. The nailbed was completely destroyed and was split into 2 halves. The extensor tendon was intact except for a few fibers which were torn. The distal phalanx bone was completely shattered and there were multiple comminuted pieces with intact soft tissue attachments seen. There were metal shavings from the plate which were found deep in the bone as well as a the surrounding soft tissue tissue. The distal part still seemed viable and seems to have a bleeding and good cap refill. These were checked before the digital tourniquet was applied. The neurovascular bundle seems to be intact on both sides. The volar aspect showed deep laceration, the deepest amount to 3 with started dorsally splitting the the distal phalanx into 2 halves. There were other multiple small stab wounds corresponding to the blades. Deep cultures were obtained 2. These were labeled and sent off to the lab. At this stage. It was reasonable to a 0 and that this digit would be salvageable. Thorough irrigation was done with about L of nmal saline with bacitracin. Any free-floating bony fragments without soft tissue attachment where divided. A curet was used to curet out the metal shaving from the bone as well as soft tissue. Again the digital tourniquet was let down and debridement of nonviable tissue was done. The debridement was done to bleeding tissue. The digital tourniquet was again applied. Percutaneous fixation of the distal phalanx with K wire was attempted next. There is also consideration for an cerclage into the distal phalanx with an SS wire. But because of further comminutionand also the need to devitalize the tissues off there any attachments which was needed to pass the excess wire, we decided to not to proceed with SS wire . it was decided to proceed with percutaneous fixation of the distal phalanx with K wire. A 1 mm K wire was chosen. It was advanced percutaneously starting from the tip passing through the fracture site into the middle phalanx. It was found to be intramedullary both in AP and lateral images of the C-arm. It was advanced to the proximal part of the middle phalanx. at this stage it was decided to proceed with nail bed repair. the nail bed was approximated using multiple interrupted 5-0 nylon. It was good approximation noted in the center as well as proximally. The rest of the skin were closed in layers with 3-0 nylon. The digital tourniquet was taken down. Hemostasis was maintained. Cap refill was good. Attention was directed to the ring finger at this time. There were multiple stab incision -like lacerations which corresponded to the blades of the machine. Most of the pulp was intact. No CROSS skin loss was noted. There is just an fracture involving the distal phalanx of the ring finger. The nailbed was intact. The nail was intact. Most of the neurovascular structures were intact. In this finger most of the injury seems to be volar. Again deep cultures were obtained 2. There were multiple metal shavings seen on the ulnar aspect of the proximal phalanx. These were approached from the volar aspect. Most of this metal shavings were in the flexor tendon as well as the volar plate. There were no foreign body noted in the joint. Thorough debridement was done to a bleeding surface. The distal interphalangeal joint was opened. Thorough wash with 1 L of normal saline with bacitracin was used to irrigate the wound.a curet was used to curet the shavings off the distal phalanx. The rest of the shavings were picked up from the soft tissue. After thorough debridement it was decided to proceed with an percutaneous K wire fixation of the distal phalanx. A 1 mm K wire was advanced from the tip of the distal phalanx through the fracture site into the middle phalanx. It was found to be intramedullary in the AP and lateral images of the C-arm. The multiple stab injury type of incisions where closed -with the 3-0 nylon. sterile dressing was applied. Splint was applied. Patient was woken up from the surgery. She was shifted to the PACU in stable and afebrile condition. Postoperative x-rays were obtained which showed satisfactory placement of the K wires. The findings were discussed with the family. We will have her admitted for pain management as well as monitoring her viability of the fingers. We will start her on IV antibiotic with both the first generation cephalosporin as well as a broad-spectrum gentamicin. We will make appropriate changes depending on the culture and sensitivity. We will also get an infectious diseases consult. The need for PICC line, the possibility for the need of it was discussed with them. They understood and verbalized the same.
--- NOTE | 2018-01-06 16:38 | PCM.PROG ---
Progress Note - Progress Note for Day of Date: 01/06/18 - Subjective Subjective: She is POD- 4 today. Afebrile, stable vitals. Dressing cleana nd dry. cultures caog neg stap. Pain well contolled with PO pain meds. she is currently on Ancef and gentamicin IV injections. Wound was inspected today. No obvious pus or discharge noted. Dressing was reapplied. I did speak to Dr. Rosas, infectious diseases specialist. Advised PICC line. She will see her in the office on Saturday. - Past Medical Family Social History Past Med/Fam/Surg Hx: No changes since H&P Allergies: Allergies No Known Drug Allergies Allergy (Verified 01/02/18 12:14) - Review of Systems ROS: No change since H&P - Vital Signs and I&O's Vital Signs: Temperature 98.6 F Pulse Rate [Right Brachial] 76 Pulse Rate [Left Brachial] 81 Pulse Rate 79 Respiratory Rate 18 Blood Pressure [Left Arm] 135/86 Blood Pressure 141/79 O2 Sat by Pulse Oximetry 96 Intake and Output: Intake & Output 01/04/18 01/05/18 01/06/18 01/07/18 11:59 11:59 11:59 11:59 Intake Total 1845 2555 2540 930 Balance 1845 2555 2540 930 - Physical Exam Oriented: Normal Eyes: Normal Ear: Normal Nose: Normal Throat: Normal Respiratory: Normal Cardiovascular: Normal : Normal Auscultation: Bowel Sounds: Normal Tenderness: Normal Skin: Wound Musculoskeletal: Right, Hand, Swelling, Tender (right hand was examined. Shows a complete crush injury of the distal phalanx of the middle finger. There is also a crush injury of the distal phalanx of the ring finger. Active bleeding is noted. Nail plate is destroyed. The compound comminuted distal phalanx fracture of the middle finger. This seems to be a sensory loss involving the distal to the injury. Multiple stab lacerations seen both volar and dorsal aspect of the distal phalanx of the middle and ring finger. X-rays confirm a compound comminuted distal phalanx fracture of the middle finger as well as ting finger. There is foreign body, metallic seen on the lateral aspect of the proximal part of the distal phalanx of the ring finger.) Mood Description: Calm, Appropriate Affect: Normal Speech Pattern: Clear, Appropriate - Laboratory and Diagnostics Result Diagrams: 01/06/18 04:54 01/06/18 15:00 Labs: 01/02/18 16:09 Surgery Gram Stain - Final 01/02/18 16:09 Surgery Wound Culture - Final Staphylococcus Epidermidis 01/02/18 16:40 Surgery Gram Stain - Final 01/02/18 16:40 Surgery Wound Culture - Final Staphylococcus Capitis Laboratory WBC 5.3 X10^3/uL (3.6-10.0) 01/06/18 04:54 RBC 3.33 X10^6/uL (3.5-5.4) L 01/06/18 04:54 Hgb 10.6 g/dL (12.0-16.0) L 01/06/18 04:54 Hct 29.9 % (36.0-47.0) L 01/06/18 04:54 MCV 89.9 fL (80.0-100.0) 01/06/18 04:54 MCH 31.7 pg (27.0-34.0) 01/06/18 04:54 MCHC 35.3 g/dL (33.0-35.0) H 01/06/18 04:54 RDW 13.2 % (11.6-16.5) 01/06/18 04:54 Plt Count 221 X10^3/uL (150.0-450.0) 01/06/18 04:54 MPV 8.8 fL (7.4-11.0) 01/06/18 04:54 Neut % 52.8 % (42.0-75.0) 01/06/18 04:54 Lymph % 35.6 % (21.0-51.0) 01/06/18 04:54 Graves % 8.0 % (0.0-13.0) 01/06/18 04:54 Eos % 2.6 % (0.9-2.9) 01/06/18 04:54 Baso % 1.0 % (0.2-1.0) 01/06/18 04:54 Neut # 2.8 x10^3/uL (2.2-4.8) 01/06/18 04:54 Lymph # 1.9 X10^3/uL (1.3-2.9) 01/06/18 04:54 Graves # 0.4 x10^3/uL (0.3-0.8) 01/06/18 04:54 Eos # 0.1 x10^3/uL (0.0-0.2) 01/06/18 04:54 Baso # 0.1 X10^3/uL (0.0-0.1) 01/06/18 04:54 Absolute Nucleated RBC 0.0 /100WBC 01/06/18 04:54 Sodium 139 mmol/L (136-145) 01/06/18 04:54 Corrected Sodium 140 mmol/L (136-145) 01/06/18 04:54 Potassium 4.0 mmol/L (3.5-5.1) 01/06/18 04:54 Chloride 106 mmol/L (98-107) 01/06/18 04:54 Carbon Dioxide 27.0 mmol/L (21-32) 01/06/18 04:54 BUN 8 mg/dL (7-18) 01/06/18 04:54 Creatinine 0.94 mg/dL (0.55-1.02) 01/06/18 15:00 Est GFR (MDRD) Af Amer > 60 (>60) 01/06/18 04:54 Est GFR (MDRD) Non-Af > 60 (>60) 01/06/18 04:54 Glucose 127 mg/dL (65-99) H 01/06/18 04:54 POC Glucose (mg/dL) 131 mg/dL (65-99) H 01/06/18 16:28 Calcium 8.5 mg/dL (8.5-10.1) 01/06/18 04:54 Corrected Calcium 9.5 mg/dL (8.5-10.1) 01/06/18 04:54 Magnesium 1.8 mg/dL (1.7-2.9) 01/06/18 04:54 Total Bilirubin 0.30 mg/dL (0.2-1.0) 01/06/18 04:54 AST 12 Units/L (15-37) L 01/06/18 04:54 ALT 12 Units/L (12-78) 01/06/18 04:54 Alkaline Phosphatase 58 Units/L (46-116) 01/06/18 04:54 Total Protein 5.9 g/dL (6.4-8.2) L 01/06/18 04:54 Albumin 2.8 g/dL (3.4-5.0) L 01/06/18 04:54 Globulin 3.1 g/dL (2.5-4.5) 01/06/18 04:54 Albumin/Globulin Ratio 0.9 Ratio (1.1-2.1) L 01/06/18 04:54 Gentamicin Trough 0.6 ug/mL (0-1.9) 01/06/18 15:00 - Plan (1) Open fracture of distal phalanx of middle finger Status: Acute Qualifiers: Encounter type: initial encounter Fracture alignment: displaced Laterality: right Qualified Code(s): S62.632B - Displaced fracture of distal phalanx of right middle finger, initial encounter for open fracture Plan: PICC line. By mouth pain meds. Plan on discharge tomorrow. Regular dressing changes. (2) Open fracture of distal phalanx of ring finger Status: Acute Qualifiers: Encounter type: initial encounter Fracture alignment: displaced Laterality: right Qualified Code(s): S62.634B - Displaced fracture of distal phalanx of right ring finger, initial encounter for open fracture Plan: PICC line. By mouth pain meds. Plan on discharge tomorrow. Regular dressing changes.
[2018-01-06] MEDS: SNACK - Diabetic Appropriate PO SCH (20:42)
[2018-01-06] MEDS: MIRALAX POWDER (1 DOSE 17GM) PO SCH (20:46)
[2018-01-06] MEDS: COLACE CAP 100 MG PO SCH (20:46)
[2018-01-06] MEDS: PERCOCET TAB 5/325 MG PO SCH (20:47)
[2018-01-06] MEDS ORDERED: NS 100 ML IV 100 ML IV ONE (22:49)
[2018-01-06] MEDS ORDERED: GENTAMICIN INJ ONE (22:49)
[2018-01-07 04:46] LABS: BASOPHILS # (AUTO) 0.1 X10^3/uL (0.0-0.1); BASOPHILS % (AUTO) 1.3 % (0.2-1.0); EOSINOPHILS # (AUTO) 0.2 x10^3/uL (0.0-0.2); EOSINOPHILS % (AUTO) 3.6 % (0.9-2.9); HEMATOCRIT 31.2 % (36.0-47.0); HEMOGLOBIN 11.1 g/dL (12.0-16.0); LYMPHOCYTES # (AUTO) 1.5 X10^3/uL (1.3-2.9); LYMPHOCYTES % (AUTO) 33.4 % (21.0-51.0); MEAN CORPUSCULAR HEMOGLOBIN 31.9 pg (27.0-34.0); MEAN CORPUSCULAR HGB CONC 35.7 g/dL (33.0-35.0); MEAN CORPUSCULAR VOLUME 89.3 fL (80.0-100.0); MEAN PLATELET VOLUME 8.6 fL (7.4-11.0); MONOCYTES # (AUTO) 0.3 x10^3/uL (0.3-0.8); MONOCYTES % (AUTO) 7.6 % (0.0-13.0); NEUTROPHILS # (AUTO) 2.5 x10^3/uL (2.2-4.8); NEUTROPHILS % (AUTO) 54.1 % (42.0-75.0); PLATELET COUNT 238 X10^3/uL (150.0-450.0); RED BLOOD COUNT 3.49 X10^6/uL (3.5-5.4); WHITE BLOOD COUNT 4.6 X10^3/uL (3.6-10.0)
[2018-01-07 04:53] LABS: ALANINE AMINOTRANSFERASE 14 Units/L (12-78); ALBUMIN 3.1 g/dL (3.4-5.0); ALKALINE PHOSPHATASE 65 Units/L (46-116); ASPARTATE AMINO TRANSFERASE 11 Units/L (15-37); BLOOD UREA NITROGEN 10 mg/dL (7-18); CALCIUM 8.8 mg/dL (8.5-10.1); CARBON DIOXIDE 28.7 mmol/L (21-32); CHLORIDE 105 mmol/L (98-107); COR CA(FOR HYPOALB) 9.5 mg/dL (8.5-10.1); COR NA(FOR HYPERGLY) 142 mmol/L (136-145); CREATININE 0.62 mg/dL (0.55-1.02); SODIUM 141 mmol/L (136-145); TOTAL PROTEIN 6.1 g/dL (6.4-8.2); eGFR BLACK RACES > 60 (>60); eGFR NON BLACK RACES > 60 (>60)
[2018-01-07] MEDS ORDERED: GENTAMICIN INJ ONE (05:12)
[2018-01-07] MEDS ORDERED: NS 100 ML IV 100 ML IV ONE (05:12)
[2018-01-07] MEDS ORDERED: GLUCOPHAGE ONE (05:14)
[2018-01-07] MEDS: PERCOCET TAB 5/325 MG PO PRN ×2 (05:25→17:00)
[2018-01-07] MEDS: ANCEF VIAL 1 GM 1 GM in NS 100 ML IV + SPIKE MINIBAG* 100 ML IV SCH (06:21)
[2018-01-07] MEDS: GENTAMICIN INJ 60 MG in NS 100 ML IV 100 ML IV SCH (06:21)
[2018-01-07] MEDS: GLUCOPHAGE PO SCH (06:21)
[2018-01-07] MEDS: JANUVIA PO SCH (06:22)
[2018-01-07] MEDS: TAB-A-VITE PO SCH (08:00)
[2018-01-07] MEDS: VITAMIN C PO SCH (08:00)
[2018-01-07] MEDS: ZOFRAN INJ 4 MG VIAL IVP PRN (08:01)
[2018-01-07] MEDS: ZINC SULFATE PO SCH (08:01)
[2018-01-07] MEDS: MOTRIN TAB 800 MG PO PRN (10:08)
--- NOTE | 2018-01-07 11:00 | PCM.PROG ---
Progress Note - Progress Note for Day of Date: 01/05/18 - Subjective Subjective: IS STATUS POST REPAIR OF OPEN FRACTURE TO THE 3RD AND 4TH DIGITS OF THE RIGHT HAND. TODAY, SHE IS ALERT AND ORIENTED, SITTING UP IN BED ON MORNING ROUNDS. SHE CONTINUES WITH COMPLAINTS OF THROBBING PAIN TO THE RIGHT HAND.ON EXAMINATION, HEART IS REGULAR IN RATE AND RHYTHM. BILATERAL LUNGS ARE NOTED TO BE CLEAR TO AUSCULTATION. ABDOMEN IS ROUND, SOFT, AND NON-TENDER WITH NORMAL BOWEL SOUNDS NOTED IN ALL QUADRANTS. NORMAL RANGE OF MOTION NOTED TO ALL EXTREMITIES. RIGHT HAND IS NOTED WITH A KERLIX DRESSING. WILL PERFORM NEXT DRESSING CHANGE ON SATURDAY. HER VITALS THIS MORNING ARE 98.5-72-18- 95%-129/77. LABS WERE OBTAINED THIS MORNING. SHE REMAINS HEMODYNAMICALLY STABLE TODAY. WOUND CULTURES REPORT GROWTH OF STAPHYLOCOCCUS CAPITUS AND STAPHYLOCOCCUS EPIDERMIDIS. IT IS SENSITIVE TO THE GENTAMYCIN THAT SHE IS CURRENTLY RECEIVIENG. WE WILL CONTINUE WITH CURRENT PLAN OF CARE AND WOUND CARE TODAY. WE PLAN TO FOLLOW UP WITH AM LABS AND CONTINUE TO MONITOR PATIENT. - Past Medical Family Social History Past Med/Fam/Surg Hx: No changes since H&P Allergies: Allergies No Known Drug Allergies Allergy (Verified 01/02/18 12:14) - Review of Systems ROS: No change since H&P - Vital Signs and I&O's Vital Signs: Temperature 97.7 F Pulse Rate [Right Brachial] 76 Pulse Rate [Left Brachial] 72 Pulse Rate 79 Respiratory Rate 16 Blood Pressure [Left Arm] 130/80 Blood Pressure 141/79 O2 Sat by Pulse Oximetry 97 Intake and Output: Intake & Output 01/04/18 01/05/18 01/06/18 01/07/18 11:59 11:59 11:59 11:59 Intake Total 1845 2555 2540 2220 Balance 1845 2555 2540 2220 - Physical Exam Oriented: Normal Eyes: Normal Ear: Normal Nose: Normal Throat: Normal Respiratory: Normal Cardiovascular: Normal : Normal Auscultation: Bowel Sounds: Normal Palpation: Normal Tenderness: Normal Skin: Wound Musculoskeletal: Right, Hand, Swelling, Tender (right hand was examined. Shows a complete crush injury of the distal phalanx of the middle finger. There is also a crush injury of the distal phalanx of the ring finger. Active bleeding is noted. Nail plate is destroyed. The compound comminuted distal phalanx fracture of the middle finger. This seems to be a sensory loss involving the distal to the injury. Multiple stab lacerations seen both volar and dorsal aspect of the distal phalanx of the middle and ring finger. X-rays confirm a compound comminuted distal phalanx fracture of the middle finger as well as ting finger. There is foreign body, metallic seen on the lateral aspect of the proximal part of the distal phalanx of the ring finger.) Mood Description: Calm, Appropriate Affect: Normal Speech Pattern: Clear, Appropriate - Laboratory and Diagnostics Result Diagrams: 01/07/18 04:27 01/07/18 04:27 Labs: 01/02/18 16:09 Surgery Gram Stain - Final 01/02/18 16:09 Surgery Wound Culture - Final Staphylococcus Epidermidis 01/02/18 16:40 Surgery Gram Stain - Final 01/02/18 16:40 Surgery Wound Culture - Final Staphylococcus Capitis Laboratory WBC 4.6 X10^3/uL (3.6-10.0) 01/07/18 04:27 RBC 3.49 X10^6/uL (3.5-5.4) L 01/07/18 04:27 Hgb 11.1 g/dL (12.0-16.0) L 01/07/18 04:27 Hct 31.2 % (36.0-47.0) L 01/07/18 04:27 MCV 89.3 fL (80.0-100.0) 01/07/18 04:27 MCH 31.9 pg (27.0-34.0) 01/07/18 04:27 MCHC 35.7 g/dL (33.0-35.0) H 01/07/18 04:27 RDW 13.0 % (11.6-16.5) 01/07/18 04:27 Plt Count 238 X10^3/uL (150.0-450.0) 01/07/18 04:27 MPV 8.6 fL (7.4-11.0) 01/07/18 04:27 Neut % 54.1 % (42.0-75.0) 01/07/18 04:27 Lymph % 33.4 % (21.0-51.0) 01/07/18 04:27 [place] % 7.6 % (0.0-13.0) 01/07/18 04:27 Eos % 3.6 % (0.9-2.9) H 01/07/18 04:27 Baso % 1.3 % (0.2-1.0) H 01/07/18 04:27 Neut # 2.5 x10^3/uL (2.2-4.8) 01/07/18 04:27 Lymph # 1.5 X10^3/uL (1.3-2.9) 01/07/18 04:27 [place] # 0.3 x10^3/uL (0.3-0.8) 01/07/18 04:27 Eos # 0.2 x10^3/uL (0.0-0.2) 01/07/18 04:27 Baso # 0.1 X10^3/uL (0.0-0.1) 01/07/18 04:27 Absolute Nucleated RBC 0.1 /100WBC 01/07/18 04:27 Sodium 141 mmol/L (136-145) 01/07/18 04:27 Corrected Sodium 142 mmol/L (136-145) 01/07/18 04:27 Potassium 3.8 mmol/L (3.5-5.1) 01/07/18 04:27 Chloride 105 mmol/L (98-107) 01/07/18 04:27 Carbon Dioxide 28.7 mmol/L (21-32) 01/07/18 04:27 BUN 10 mg/dL (7-18) 01/07/18 04:27 Creatinine 0.62 mg/dL (0.55-1.02) 01/07/18 04:27 Est GFR (MDRD) Af Amer > 60 (>60) 01/07/18 04:27 Est GFR (MDRD) Non-Af > 60 (>60) 01/07/18 04:27 Glucose 138 mg/dL (65-99) H 01/07/18 04:27 POC Glucose (mg/dL) 158 mg/dL (65-99) H 01/07/18 06:15 Calcium 8.8 mg/dL (8.5-10.1) 01/07/18 04:27 Corrected Calcium 9.5 mg/dL (8.5-10.1) 01/07/18 04:27 Magnesium 1.8 mg/dL (1.7-2.9) 01/06/18 04:54 Total Bilirubin 0.20 mg/dL (0.2-1.0) 01/07/18 04:27 AST 11 Units/L (15-37) L 01/07/18 04:27 ALT 14 Units/L (12-78) 01/07/18 04:27 Alkaline Phosphatase 65 Units/L (46-116) 01/07/18 04:27 Total Protein 6.1 g/dL (6.4-8.2) L 01/07/18 04:27 Albumin 3.1 g/dL (3.4-5.0) L 01/07/18 04:27 Globulin 3.0 g/dL (2.5-4.5) 01/07/18 04:27 Albumin/Globulin Ratio 1.0 Ratio (1.1-2.1) L 01/07/18 04:27 Gentamicin Trough 0.6 ug/mL (0-1.9) 01/06/18 15:00 - Plan (1) Open fracture of distal phalanx of middle finger Status: Acute Qualifiers: Encounter type: initial encounter Fracture alignment: displaced Laterality: right Qualified Code(s): S62.632B - Displaced fracture of distal phalanx of right middle finger, initial encounter for open fracture Plan: CONTINUE IV ANTIBIOTICS AND WOUND CARE, PO AND IV PAIN MEDICATION, CONTINUE TO MONITOR (2) Open fracture of distal phalanx of ring finger Status: Acute Qualifiers: Encounter type: initial encounter Fracture alignment: displaced Laterality: right Qualified Code(s): S62.634B - Displaced fracture of distal phalanx of right ring finger, initial encounter for open fracture Plan: CONTINUE IV ANTIBIOTICS AND WOUND CARE, PO AND IV PAIN MEDICATION, CONTINUE TO MONITOR (3) Diabetes Status: Acute Qualifiers: Diabetes mellitus type: type 2 Diabetes mellitus complication status: without complication Diabetes mellitus fdc insulin use: with exterminator helper use Qualified Code(s): E11.9 - Type 2 diabetes mellitus without complications ; Z79.4 - terminal system operator (current) use of insulin; Z79.4 - [facility] (current) use of insulin; Z79.4 - [facility] (current) use of insulin; Z79.4 - [facility] ( current) use of insulin Plan: CONTINUE GLUCOPHAGE AND JANUVIA, CONTINUE TO MONITOR
--- NOTE | 2018-01-07 11:04 | PCM.PROG ---
Progress Note - Progress Note for Day of Date: 01/06/18 - Subjective Subjective: IS STATUS POST REPAIR OF OPEN FRACTURE TO THE 3RD AND 4TH DIGITS OF THE RIGHT HAND. TODAY, SHE IS ALERT AND ORIENTED, SITTING UP IN BED ON MORNING ROUNDS. SHE CONTINUES WITH COMPLAINTS OF THROBBING PAIN TO THE RIGHT HAND. ON EXAMINATION, HEART IS REGULAR IN RATE AND RHYTHM. BILATERAL LUNGS ARE NOTED TO BE CLEAR TO AUSCULTATION. ABDOMEN IS ROUND, SOFT, AND NON-TENDER WITH NORMAL BOWEL SOUNDS NOTED IN ALL QUADRANTS. NORMAL RANGE OF MOTION NOTED TO ALL EXTREMITIES. RIGHT HAND IS NOTED WITH A KERLIX DRESSING. HER VITALS THIS MORNING ARE 98.0-76-18-99%-121/58. LABS WERE OBTAINED THIS MORNING. SHE REMAINS HEMODYNAMICALLY STABLE TODAY. SHE CONTINUES TO RECEIVE IV ANTIBIOTICS FOR GROWTH OF STAPHYLOCOCCUS CAPITUS AND STAPHYLOCOCCUS EPIDERMIDIS. PERFORMED DRESSING CHANGE TODAY. HE ALSO SPOKE WITH , INFECTIOUS DISEASE. SHE RECOMMENDED PICC LINE AND PLANS TO SEE PATIENT IN THE OFFICE ON SATURDAY. ANESTHESIA WAS CONSULTED FOR PICC LINE TODAY. OTHERWISE, WE WILL CONTINUE WITH CURRENT PLAN OF CARE AND WOUND CARE TODAY. WE PLAN TO FOLLOW UP WITH AM LABS AND CONTINUE TO MONITOR PATIENT. - Past Medical Family Social History Past Med/Fam/Surg Hx: No changes since H&P Allergies: Allergies No Known Drug Allergies Allergy (Verified 01/02/18 12:14) - Review of Systems ROS: No change since H&P - Vital Signs and I&O's Vital Signs: Temperature 97.7 F Pulse Rate [Right Brachial] 76 Pulse Rate [Left Brachial] 72 Pulse Rate 79 Respiratory Rate 16 Blood Pressure [Left Arm] 130/80 Blood Pressure 141/79 O2 Sat by Pulse Oximetry 97 Intake and Output: Intake & Output 01/04/18 01/05/18 01/06/18 01/07/18 11:59 11:59 11:59 11:59 Intake Total 1845 2555 2540 2220 Balance 1845 2555 2540 2220 - Physical Exam Oriented: Normal Eyes: Normal Ear: Normal Nose: Normal Throat: Normal Respiratory: Normal Cardiovascular: Normal : Normal Auscultation: Bowel Sounds: Normal Palpation: Normal Tenderness: Normal Skin: Wound Musculoskeletal: Right, Hand, Swelling, Tender (right hand was examined. Shows a complete crush injury of the distal phalanx of the middle finger. There is also a crush injury of the distal phalanx of the ring finger. Active bleeding is noted. Nail plate is destroyed. The compound comminuted distal phalanx fracture of the middle finger. This seems to be a sensory loss involving the distal to the injury. Multiple stab lacerations seen both volar and dorsal aspect of the distal phalanx of the middle and ring finger. X-rays confirm a compound comminuted distal phalanx fracture of the middle finger as well as ting finger. There is foreign body, metallic seen on the lateral aspect of the proximal part of the distal phalanx of the ring finger.) Mood Description: Calm, Appropriate Affect: Normal Speech Pattern: Clear, Appropriate - Laboratory and Diagnostics Result Diagrams: 01/07/18 04:27 01/07/18 04:27 Labs: 01/02/18 16:09 Surgery Gram Stain - Final 01/02/18 16:09 Surgery Wound Culture - Final Staphylococcus Epidermidis 01/02/18 16:40 Surgery Gram Stain - Final 01/02/18 16:40 Surgery Wound Culture - Final Staphylococcus Capitis Laboratory WBC 4.6 X10^3/uL (3.6-10.0) 01/07/18 04:27 RBC 3.49 X10^6/uL (3.5-5.4) L 01/07/18 04:27 Hgb 11.1 g/dL (12.0-16.0) L 01/07/18 04:27 Hct 31.2 % (36.0-47.0) L 01/07/18 04:27 MCV 89.3 fL (80.0-100.0) 01/07/18 04:27 MCH 31.9 pg (27.0-34.0) 01/07/18 04:27 MCHC 35.7 g/dL (33.0-35.0) H 01/07/18 04:27 RDW 13.0 % (11.6-16.5) 01/07/18 04:27 Plt Count 238 X10^3/uL (150.0-450.0) 01/07/18 04:27 MPV 8.6 fL (7.4-11.0) 01/07/18 04:27 Neut % 54.1 % (42.0-75.0) 01/07/18 04:27 Lymph % 33.4 % (21.0-51.0) 01/07/18 04:27 [place] % 7.6 % (0.0-13.0) 01/07/18 04:27 Eos % 3.6 % (0.9-2.9) H 01/07/18 04:27 Baso % 1.3 % (0.2-1.0) H 01/07/18 04:27 Neut # 2.5 x10^3/uL (2.2-4.8) 01/07/18 04:27 Lymph # 1.5 X10^3/uL (1.3-2.9) 01/07/18 04:27 [place] # 0.3 x10^3/uL (0.3-0.8) 01/07/18 04:27 Eos # 0.2 x10^3/uL (0.0-0.2) 01/07/18 04:27 Baso # 0.1 X10^3/uL (0.0-0.1) 01/07/18 04:27 Absolute Nucleated RBC 0.1 /100WBC 01/07/18 04:27 Sodium 141 mmol/L (136-145) 01/07/18 04:27 Corrected Sodium 142 mmol/L (136-145) 01/07/18 04:27 Potassium 3.8 mmol/L (3.5-5.1) 01/07/18 04:27 Chloride 105 mmol/L (98-107) 01/07/18 04:27 Carbon Dioxide 28.7 mmol/L (21-32) 01/07/18 04:27 BUN 10 mg/dL (7-18) 01/07/18 04:27 Creatinine 0.62 mg/dL (0.55-1.02) 01/07/18 04:27 Est GFR (MDRD) Af Amer > 60 (>60) 01/07/18 04:27 Est GFR (MDRD) Non-Af > 60 (>60) 01/07/18 04:27 Glucose 138 mg/dL (65-99) H 01/07/18 04:27 POC Glucose (mg/dL) 158 mg/dL (65-99) H 01/07/18 06:15 Calcium 8.8 mg/dL (8.5-10.1) 01/07/18 04:27 Corrected Calcium 9.5 mg/dL (8.5-10.1) 01/07/18 04:27 Magnesium 1.8 mg/dL (1.7-2.9) 01/06/18 04:54 Total Bilirubin 0.20 mg/dL (0.2-1.0) 01/07/18 04:27 AST 11 Units/L (15-37) L 01/07/18 04:27 ALT 14 Units/L (12-78) 01/07/18 04:27 Alkaline Phosphatase 65 Units/L (46-116) 01/07/18 04:27 Total Protein 6.1 g/dL (6.4-8.2) L 01/07/18 04:27 Albumin 3.1 g/dL (3.4-5.0) L 01/07/18 04:27 Globulin 3.0 g/dL (2.5-4.5) 01/07/18 04:27 Albumin/Globulin Ratio 1.0 Ratio (1.1-2.1) L 01/07/18 04:27 Gentamicin Trough 0.6 ug/mL (0-1.9) 01/06/18 15:00 - Plan (1) Open fracture of distal phalanx of middle finger Status: Acute Qualifiers: Encounter type: initial encounter Fracture alignment: displaced Laterality: right Qualified Code(s): S62.632B - Displaced fracture of distal phalanx of right middle finger, initial encounter for open fracture Plan: PICC LINE, CONTINUE IV ANTIBIOTICS AND WOUND CARE, PO AND IV PAIN MEDICATION, CONTINUE TO MONITOR (2) Open fracture of distal phalanx of ring finger Status: Acute Qualifiers: Encounter type: initial encounter Fracture alignment: displaced Laterality: right Qualified Code(s): S62.634B - Displaced fracture of distal phalanx of right ring finger, initial encounter for open fracture Plan: PICC LINE, CONTINUE IV ANTIBIOTICS AND WOUND CARE, PO AND IV PAIN MEDICATION, CONTINUE TO MONITOR (3) Diabetes Status: Acute Qualifiers: Diabetes mellitus type: type 2 Diabetes mellitus complication status: without complication Diabetes mellitus longterm insulin use: with longterm use Qualified Code(s): E11.9 - Type 2 diabetes mellitus without complications ; Z79.4 - senior care (current) use of insulin; Z79.4 - senior care (current) use of insulin; Z79.4 - senior care (current) use of insulin; Z79.4 - senior care ( current) use of insulin Plan: CONTINUE GLUCOPHAGE AND JANUVIA, CONTINUE TO MONITOR
[2018-01-07] MEDS ORDERED: PHENERGAN INJ 25 MG IV PRN (13:36)
--- NOTE | 2018-01-07 14:10 | DR.H&P ---
H&P - History & Physical for Day of: H&P Date: 01/07/18 - Chief Complaint Chief Complaint: right hand injury - Allergies Allergies/Adverse Reactions: Allergies Allergy/AdvReac Type Severity Reaction Status Date / Time No Known Drug Allergies Allergy Verified 01/02/18 12:14 - History of Present Illness History of Present Illness: mechanical injury to right hand requiring orthopedic surgery and now needs mcc antibiotic therapy - Past Medical History Past Medical History: Diabetes, Hypothyroidism - Past Surgical History Surgical History: ENV[employer] Surgery, Other - Family History Family Medical History: Diabetes Mellitus - Social History Does patient currently use any type of tobacco product: No Have you used tobacco products in the last 12 months: No Type of Tobacco Use: None Does any household member use tobacco: No Alcohol Use: Occasionally Drug Use: None - Review of Systems Respiratory: No Symptoms Reported Cardiovascular: No Symptoms Reported Gastrointestinal: Nausea, Vomiting - Physical Exam Vital Signs: Temperature 97.9 F Pulse Rate [Right Brachial] 76 Pulse Rate [Left Brachial] 71 Pulse Rate 79 Respiratory Rate 20 Blood Pressure [Left Arm] 167/78 Blood Pressure 141/79 O2 Sat by Pulse Oximetry 96 Oriented: Normal Cardiovascular: Normal Skin: Wound (right hand) Psychiatric: Normal Mood Description: Calm Affect: Normal - Assessment/Plan (1) group home (current) use of antibiotics Status: Acute Plan: placement of PICC line Procedures (ALL) - Central Line Placement PCM.CLCO: written consent Time out performed: Yes Patient placed pm monitor/pulse ox: Yes MD prep: mask, gown, gloves, other Centrial line prep: chlorhexidine scrub Local anesthsia used: lidocane 1% Ultrasound used for placement: Yes Central line lumen ininserted: double (5fr power port. trimmed to 42cm. ) Post procedure: good blood return, all ports aspirated, flushed,capped, sterile dressing applied Post procedure xray: tip oc catheter in good position Patient tolerated procedure: Yes Complications: none
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
[2018-01-07 16:11] VITALS: BP 176/88
== END 2018-01-07 16:15 | disposition home or self-care (01) | DRG 514 ==
LOC: ER 12:25 → MED/SURG 13:52 → SURG1 15:23 → MED/SURG 18:02 → SURG1 18:02 → MED/SURG 01-03 09:45 → SURG1 01-03 09:54 → MED/SURG 01-03 09:55 → UNDOADMOB 01-03 09:55
PROVIDERS: ADMIT Internal Medicine; ATTEND Internal Medicine
PROC: 0PST34Z Reposition Right Finger Phalanx with Internal Fixation Device, Percutaneous Approach (ICD-10-PCS; 2018-01-02)
PROC: 0HQQXZZ Repair Finger Nail, External Approach (ICD-10-PCS; 2018-01-02)
PROC: 0JDJ3ZZ Extraction of Right Hand Subcutaneous Tissue and Fascia, Percutaneous Approach (ICD-10-PCS; 2018-01-02)
PROC: 0JDJ3ZZ Extraction of Right Hand Subcutaneous Tissue and Fascia, Percutaneous Approach (ICD-10-PCS; 2018-01-02)
PROC: 0PST34Z Reposition Right Finger Phalanx with Internal Fixation Device, Percutaneous Approach (ICD-10-PCS; principal; 2018-01-02 15:00)
PROC: 02HV33Z Insertion of Infusion Device into Superior Vena Cava, Percutaneous Approach (ICD-10-PCS; 2018-01-07)
DX: S62.634B Displaced fracture of distal phalanx of right ring finger, initial encounter for open fracture (principal); S62.632B Displaced fracture of distal phalanx of right middle finger, initial encounter for open fracture; W31.82XA Contact with other commercial machinery, initial encounter; Y92.89 Other specified places as the place of occurrence of the external cause; B95.7 Other staphylococcus as the cause of diseases classified elsewhere; Z79.4 Long term (current) use of insulin; E11.65 Type 2 diabetes mellitus with hyperglycemia; E03.8 Other specified hypothyroidism; I87.2 Venous insufficiency (chronic) (peripheral)
CPT/HCPCS: 36415; 71045; 73130; 76000; 80053; 80170; 82565; 83735; 85025; 87070; 87075; 87077; 87186; 87205; 96365; 96374; 96375; 99284; A4222; G0378; J0690; J0713; J1170; J1580; J1885; J2001; J2250; J2270; J2405; J2550; J2765; J3010; J3480; J3490